=== PATIENT | female | born 1970 | race Two or more races ===

== ENCOUNTER 2017-02-13 12:28 | Emergency (ER) | payer BC, MEDICAID ==
[~2017-02-13] VITALS: Ht 162.6 cm; Wt 70.3 kg
[2017-02-13 12:28] VITALS: BP 132/80
== END 2017-02-13 14:24 | disposition home or self-care (01) ==
LOC: ER 12:30
DX: J06.9 Acute upper respiratory infection, unspecified (principal); Z98.890 Other specified postprocedural states
CPT/HCPCS: 99282; A4606; Z7610

== ENCOUNTER 2021-02-27 08:24 | Outpatient (CLI) | payer BC ==
[2021-02-27 09:16] LABS: CREATININE 0.7 mg/dL (0.6-1.3)
== END 2021-02-27 23:59 | disposition home or self-care (01) ==
LOC: LAB 08:24
PROVIDERS: ATTEND Family Medicine
DX: R31.9 Hematuria, unspecified (principal)
CPT/HCPCS: 36415; 82565-TC; 84520-TC

== ENCOUNTER 2021-03-12 08:23 | Outpatient (CLI) | payer BC ==
[2021-03-12] MEDS ORDERED: IV NS 0.9% 250 ML IV ONE (08:40)
[2021-03-12] MEDS ORDERED: IOHEXOL-300 100 ML VIAL IV ONE (08:40)
== END 2021-03-12 23:59 | disposition home or self-care (01) ==
LOC: CT 08:23
PROVIDERS: ATTEND Family Medicine
DX: K57.30 Diverticulosis of large intestine without perforation or abscess without bleeding (principal); R31.9 Hematuria, unspecified; I87.8 Other specified disorders of veins
CPT/HCPCS: 74178; J7050; Q9967

== ENCOUNTER 2021-07-29 09:23 | Emergency (ER) | payer BC, OTHER ==
[~2021-07-29] VITALS: Ht 162.6 cm; Wt 81.6 kg
[2021-07-29 09:34] VITALS: BP 136/84
[2021-07-29] MEDS ORDERED: CYCLOBENZAPRINE 10 MG TABLET ONE (09:58)
[2021-07-29] MEDS ORDERED: IBUPROFEN 600 MG TABLET ONE (09:59)
[2021-07-29] MEDS ORDERED: IBUPROFEN 600 MG TABLET PO ONE (10:00)
[2021-07-29] MEDS ORDERED: CYCLOBENZAPRINE 10 MG TABLET PO ONE (10:00)
[2021-07-29 10:12] LABS: BILIRUBIN,URINE NEGATIVE (NEGATIVE); COLOR,URINE YELLOW (YELLOW); LEUKOCYTE ESTERASE ,URINE NEGATIVE (NEGATIVE); NITRITE, URINE NEGATIVE (NEGATIVE); PROTEIN,URINE NEGATIVE (NEGATIVE); UGLUCOSE NEGATIVE (NEGATIVE); UROBILINOGEN,URINE 0.2 EU/dL (0.2)
[2021-07-29 10:30] LABS: BACTERIA,URINE Rare /HPF (None Seen); SQUAMOUS EPITHELIAL CELL,UR 0-2 /HPF (None Seen); WBC,URINE 0-2 /HPF (0-3)
[2021-07-29] MEDS ORDERED: CYCL10TA9 PO (10:38)
[2021-07-29] MEDS ORDERED: IBUP-1955 PO (10:38)
--- NOTE | 2021-07-29 11:12 | NUR ---
Patient discharged to home in stable condition. Written and verbal after care instructions given. Patient verbalizes understanding of instruction.
== END 2021-07-29 11:12 | disposition home or self-care (01) ==
LOC: ER 09:33
DX: M54.50 Low back pain, unspecified (principal); Z79.899 Other long term (current) drug therapy
CPT/HCPCS: 81001; 99283; A6403

== ENCOUNTER 2021-11-12 11:28 | Emergency (ER) | payer BC, OTHER ==
[~2021-11-12] VITALS: Ht 165.1 cm; Wt 81.6 kg
[~2021-11-12 11:28] MED LIST: CYCL10TA9 PO; IBUP-1955 PO
[2021-11-12 11:41] VITALS: BP 138/91
--- NOTE | 2021-11-12 11:45 | NUR ---
BIBS W/ C/O LEFT LEG AND SHOULDER PAIN X3DAYS RATED 8/10 ON PS; PT DENIES TRAUMA/INJURY. TO ER BED 12.
[2021-11-12] MEDS ORDERED: CYCLOBENZAPRINE 10 MG TABLET ONE (12:06)
[2021-11-12] MEDS ORDERED: KETOROLAC TROMETHAMINE INJ 30 MG/ML VIAL ONE (12:06)
[2021-11-12] MEDS ORDERED: CYCLOBENZAPRINE 10 MG TABLET PO ONE (12:30)
[2021-11-12] MEDS ORDERED: KETOROLAC TROMETHAMINE INJ 30 MG/ML VIAL IM ONE (12:30)
[2021-11-12] MEDS ORDERED: CYCL5TAB PO (14:12)
[2021-11-12] MEDS ORDERED: IBUP-1957 PO (14:12)
--- NOTE | 2021-11-12 14:31 | NUR ---
Patient discharged to home in stable condition. Written and verbal after care instructions given. Patient verbalizes understanding of instruction.
== END 2021-11-12 14:32 | disposition home or self-care (01) ==
LOC: ER 11:30
DX: M25.511 Pain in right shoulder (principal); M79.604 Pain in right leg; Z98.890 Other specified postprocedural states
CPT/HCPCS: 99283; 96372; J1885

== ENCOUNTER 2022-04-30 08:38 | Outpatient (CLI) | payer BC, OTHER ==
[~2022-04-30 08:38] MED LIST changes: +CYCL5TAB PO; +IBUP-1957 PO
== END 2022-04-30 23:59 | disposition home or self-care (01) ==
LOC: US 08:38
PROVIDERS: ATTEND Family Medicine
DX: D25.1 Intramural leiomyoma of uterus (principal); R31.9 Hematuria, unspecified; N94.6 Dysmenorrhea, unspecified
CPT/HCPCS: 76856-TC

== ENCOUNTER 2022-09-07 11:07 | Outpatient (CLI) | payer BC, OTHER ==
[2022-09-07] MEDS ORDERED: GADOTERATE MEGLUMINE 10 MMOL/20 ML VIAL IV ONE (11:08)
== END 2022-09-07 23:59 | disposition home or self-care (01) ==
LOC: MRI 11:07
PROVIDERS: ATTEND Family Medicine
DX: D25.9 Leiomyoma of uterus, unspecified (principal); N95.8 Other specified menopausal and perimenopausal disorders
CPT/HCPCS: 74183; 72197; A9575